=== PATIENT | male | born 1990 | race Caucasian/White ===

== ENCOUNTER 2019-01-09 17:03 | Emergency (ER) | payer OTHER ==
[~2019-01-09] VITALS: Ht 175.3 cm; Wt 109.3 kg
[~2019-01-09 17:03] MED LIST: ACEASPCAF PO; AMOX500 PO; Bactrim Ds Tab1 EACH PO; CYCL10 PO; HYDACE5 PO; Keflex500 MG PO; LORA2 PO; META800 PO; NAPR250; NAPR250 PO; NAPR500 PO; OXYACE5T; OXYACE5T PO; OXYACE7.5T PO; PENVK500 PO; PROM25 PO; RXAMOX500 PO; RXHYDACE PO; RXTRAM50 PO; TRAM50 PO
[2019-01-09] MEDS ORDERED: Percocet 5-3251 EACH PO (20:22)
[2019-01-09] MEDS ORDERED: Keflex500 MG PO (20:23)
== END 2019-01-09 20:28 | disposition home or self-care (01) ==
LOC: ER 17:03
DX: S62.664B Nondisplaced fracture of distal phalanx of right ring finger, initial encounter for open fracture (principal); W22.8XXA Striking against or struck by other objects, initial encounter; F17.210 Nicotine dependence, cigarettes, uncomplicated
CPT/HCPCS: 12002; 73140; 90471; 90714; 99283-25